=== PATIENT | female | born 1955 | race Hispanic/Latino ===

== ENCOUNTER 2016-11-02 10:21 | Outpatient (CLI) | payer OTHER ==
--- NOTE | 2016-11-02 15:29 | Mammography Report ---
BILATERAL DIGITAL SCREENING MAMMOGRAM with CAD: 11/02/16 10:21:00 CLINICAL: Breast cancer survivor status post right partial mastectomy and radiation therapy in 2005. COMPARISON:Her last mammogram was in 2004. FINDINGS: The breasts are on most entirely fatty. A spiculated density in the upper-outer right breast measures approximately 2 cm and correlates with the postsurgical scar. The scar is relatively dense and requires additional imaging.A left asymmetry on the CC view also requires additional imaging.No suspicious calcifications. IMPRESSION: Bilateral asymmetries requiring further workup. BI-RADS CATEGORY: 0 -- Additional Imaging Evaluation Required RECOMMENDATION: Recall for spot magnification views of the right lumpectomy site , a left CC spot compression view and bilateral breast ultrasound if needed. ACR BI-RADS MAMMOGRAPHIC CODES: 0 = Needs additional imaging evaluation; 1 = Negative; 2 = Benign; 3 = Probably benign; 4 = Suspicious; 5 = Malignant; 6 = Known biopsy-proven malignancy COMMENT: 1. Dense breast tissue, i.e., adenosis, fibrocystic changes, etc., may obscure an underlying neoplasm. 2. Approximately 10% of cancers are not detected with mammography. 3. A negative mammography report should not delay biopsy if a clinically suspicious mass is present. COMMENT: Patient follow-up letters are generated via our [employer] application.
== END 2016-11-02 10:22 | disposition home or self-care (01) ==
LOC: SPVWC 10:21
PROVIDERS: ATTEND Plastic Surgery
DX: Z12.31 Encounter for screening mammogram for malignant neoplasm of breast (principal); Z90.11 Acquired absence of right breast and nipple
CPT/HCPCS: 77067; G0202

== ENCOUNTER 2016-11-28 10:20 | Outpatient (CLI) | payer OTHER ==
--- NOTE | 2016-11-28 11:18 | Mammography Report ---
BILATERAL DIGITAL DIAGNOSTIC MAMMOGRAM : 11/28/16 10:20:00 CLINICAL: Recalled for additional views. COMPARISON:11/02/16 screening FINDINGS: Spot magnification views of the right breast demonstrate a normal-appearing scar and no suspicious findings at the surgical site. A spot compression CC view of the left breast demonstrate a persistent asymmetry but it disappears on rolled views. IMPRESSION: No mammographic evidence of malignancy. BI-RADS CATEGORY: 2 - - Benign RECOMMENDATION: Routine mammographic screening in one year. ACR BI-RADS MAMMOGRAPHIC CODES: 0 = Needs additional imaging evaluation; 1 = Negative; 2 = Benign; 3 = Probably benign; 4 = Suspicious; 5 = Malignant; 6 = Known biopsy-proven malignancy COMMENT: 1. Dense breast tissue, i.e., adenosis, fibrocystic changes, etc., may obscure an underlying neoplasm. 2. Approximately 10% of cancers are not detected with mammography. 3. A negative mammography report should not delay biopsy if a clinically suspicious mass is present. COMMENT: Patient follow-up letters are generated via our [employer] application.
== END 2016-11-28 10:21 | disposition home or self-care (01) ==
LOC: SPVWC 10:20
PROVIDERS: ATTEND Plastic Surgery
DX: R92.2 Inconclusive mammogram (principal)
CPT/HCPCS: 77066; G0204